=== PATIENT | male | born 1935 | race Caucasian/White ===

== ENCOUNTER 2019-10-24 09:08 | Inpatient (IN) | payer MEDICARE ==
[2019-10-24] VITALS (20 sets, daily range): BP systolic 96–135; BP diastolic 47–81
[~2019-10-24] VITALS: Ht 175.3 cm; Wt 66.7 kg
--- NOTE | 2019-10-24 09:15 | NUR ---
[id number], from [facility], c/p right shoulder pain and left knee skin tear s/p GLF. Patient a/ox3, breathing even and unlabored, no sob noted. Needs attended. Kept comfortable.
--- NOTE | 2019-10-24 09:23 | NUR ---
patient taken to radiology.
[2019-10-24] MEDS ORDERED: TDAP [DIPH/PERTUSSIS/TET] 0.5 ML VIAL IM ONE (09:30)
[2019-10-24 10:12] LABS: BASOPHILS # (AUTO) 0.2 /CMM (0.0-0.2); BASOPHILS % (AUTO) 1.3 % (0.0-2.0); EOSINOPHILS % (AUTO) 0.9 % (0.0-6.0); HEMATOCRIT 42 % (39-51); HEMOGLOBIN 13.7 g/dL (13.5-17.5); LYMPHOCYTES # (AUTO) 0.8 /CMM (0.8-4.8); LYMPHOCYTES % (AUTO) 6.5 % (20.0-44.0); MEAN CORPUSCULAR HGB CONC 33 g/dl (31.0-36.0); MEAN CORPUSCULAR VOLUME 96 fL (80-96); MONOCYTES # (AUTO) 0.7 /CMM (0.1-1.30); MONOCYTES % (AUTO) 5.8 % (2.0-12.0); NEUTROPHILS % (AUTO) 85.5 % (43.0-81.0); PLATELET COUNT (AUTO) 187 /CMM (150-450); RED BLOOD CELL COUNT(AUTO) 4.34 MIL/uL (4.5-6.0); WHITE BLOOD COUNT (AUTO) 12.9 K/uL (4.3-11.0)
[2019-10-24 10:19] LABS: CALCIUM, SERUM 8.3 mg/dL (8.5-10.1); POTASSIUM 3.6 mmol/L (3.5-5.1)
--- NOTE | 2019-10-24 10:27 | NUR ---
PANEL ON-CALL PAGED
--- NOTE | 2019-10-24 10:33 | NUR ---
REQUESTED FOR AN ICU BED, PATIENT ACCEPTED BY DR. CHAMBERS.
[2019-10-24] MEDS ORDERED: FLUT12AE3 INH (10:37)
[2019-10-24] MEDS ORDERED: PROP10TA68 PO (10:37)
[2019-10-24] MEDS ORDERED: PANT40TA4 PO (10:37)
[2019-10-24] MEDS ORDERED: ASPI-1169 PO (10:38)
[2019-10-24] MEDS ORDERED: PRAV20TA4 PO (10:38)
[2019-10-24] MEDS ORDERED: ASCO-352 PO (10:38)
[2019-10-24] MEDS ORDERED: LEVO50TA PO (10:38)
[2019-10-24] MEDS ORDERED: ALLO300T2 PO (10:38)
[2019-10-24] MEDS ORDERED: FURO20TA4 PO (10:38)
[2019-10-24] MEDS ORDERED: TAMS-12 PO (10:38)
[2019-10-24] MEDS ORDERED: SOTA120T PO (10:38)
[2019-10-24] MEDS ORDERED: CLOP75TA15 PO (10:38)
[2019-10-24] MEDS ORDERED: Z GUARD REMEDY 2 OZ OINT TP PRN (11:00)
[2019-10-24] MEDS ORDERED: ACETAMINOPHEN 325 MG TABLET PO PRN (11:00)
[2019-10-24] MEDS ORDERED: MAG HYDROX/AL HYDROX/SIMETH 30 ML UDC PO PRN (11:00)
[2019-10-24] MEDS ORDERED: HYDROCODONE/APAP 5/325MG 1 EACH TABLET PO PRN (11:00)
[2019-10-24] MEDS ORDERED: ONDANSETRON HCL/PF 4 MG/2 ML VIAL IVP PRN (11:00)
[2019-10-24] MEDS ORDERED: MAGNESIUM HYDROXIDE 30 ML UDC PO PRN (11:00)
--- NOTE | 2019-10-24 11:03 | NUR ---
NURSING SUP GAVE ICU BED 257.
--- NOTE | 2019-10-24 11:12 | NUR ---
REPORT GIVEN TO RASTA SCHROEDER. AWAITING TRANSFER TO FLOOR.
--- NOTE | 2019-10-24 11:45 | NUR ---
RN NOTES RECEIVED PT FROM ER IN ROOM 257, PT IS A/Ox4, NO NEUROLOGICAL DEFICIT NOTED, PT STATED HAS MILD HARD OF HEARING WHICH IS NOT NEW FOR HIM ON RA, RESPIRATION EVEN AND UNLABORED,O2 SAT WNL, NO SOB NOTED , ON TELE A PACING , VOIDING PER URINAL, L AC IV G 18 AND L WRIST IV G 22 SITE CLEAN, DRY AND INTACT , MULTIPLY BRUISING AND ABRASION TO RIGHT PINKY FINGER AND LEFT LOWER LEG NOTED , PICTURE TAKEN AND PLACED IN THE CHART, WOUND CONSULT ORDERED, SR UP X3, CALL LIGHT WITHIN EASY REACH, BED LOCKED AND IN LOWEST POSITION, CONTINUE TO MONITOR.
--- NOTE | 2019-10-24 11:51 | NUR ---
PATIENT A/OX3, BREATHING EVEN AND UNLABORED, TRANSFERRED TO ICU VIA ACLS PROTOCOL. NO DISTRESS NOTED. NO CHANGE IN LOC OBSERVED. ENDORSED TO JEWEL SCHROEDER.
[2019-10-24] MEDS: ATORVASTATIN 10 MG TABLET PO SCH (12:21)
[2019-10-24] MEDS ORDERED: IV NS 0.9% 1,000 ML IV ONE (13:00)
--- NOTE | 2019-10-24 15:00 | NUR ---
RN NOTES PT STABLE, NO DISTRESS NOTED, CONTINUE TO MONITOR .
[2019-10-24] MEDS ORDERED: PROPRANOLOL HCL 10 MG TABLET PO SCH (17:00)
[2019-10-24] MEDS: FLUTICASONE/VILANTEROL 1 EACH BLST.W.DEV IH SCH ×2 (17:00→17:08)
[2019-10-24] MEDS: AMOXICILLIN TRIHYDRATE 250 MG CAPSULE PO SCH (17:08)
[2019-10-24] MEDS: SOTALOL HCL 80 MG TABLET PO SCH (17:10)
[2019-10-24] MEDS: ASCORBIC ACID 500 MG TABLET PO SCH (17:10)
[2019-10-24] MEDS: TAMSULOSIN 0.4 MG CAP.SR.24H PO SCH (17:12)
--- NOTE | 2019-10-24 18:47 | NUR ---
RN NOTES PT RESTING , NO NEUROLOGICAL CHANGES NOTED , PT IS A/Ox4, NS AT 75CC/HR RUNNING , WILL ENDOSE TO SENIOR UX DESIGNER NURSE FOR CONTINUITY OF CARE .
--- NOTE | 2019-10-24 19:30 | NUR ---
RN NOTES RECEIVED PATIENT AWAKE ON BED. ON ROOM AIR. AOX4 VERBALLY RESPONSIVE AND AWARE ABOUT WHAT HAPPENED TO HIM. NO SOB. DENIES CHEST PAIN. COMPLAINING OF RIGHT SHOULDER PAIN WHEN MOVE BUT MUCH BETTER FROM EARLIER PER PATIENT. SR WITH A PACING ON TELE MONITOR.IV SITE ON LAC AND LT. ARM WITH NS @75 ML/HR INTACT AND PATENT. KEPT PT CLEAN AND DRY. PATIENT IS USING URINAL. REMINDED TO USE CALL LIGHT FOR ASSISTANCE. KEPT BED IN LOWEST POSSIBLE POSITION. CONTINUE TO MONITOR. NEURO STATUS. WILL CLOSELY MONITOR.
[2019-10-25] VITALS (24 sets, daily range): BP systolic 66–138; BP diastolic 21–75
[2019-10-25 05:19] LABS: BASOPHILS % (AUTO) 0.3 % (0.0-2.0); EOSINOPHILS % (AUTO) 0.3 % (0.0-6.0); HEMATOCRIT 35 % (39-51); HEMOGLOBIN 11.7 g/dL (13.5-17.5); LYMPHOCYTES # (AUTO) 1.4 /CMM (0.8-4.8); LYMPHOCYTES % (AUTO) 19.5 % (20.0-44.0); MEAN CORPUSCULAR HGB CONC 34 g/dl (31.0-36.0); MEAN CORPUSCULAR VOLUME 96 fL (80-96); MONOCYTES # (AUTO) 1.2 /CMM (0.1-1.30); MONOCYTES % (AUTO) 16.9 % (2.0-12.0); NEUTROPHILS # (AUTO) 4.4 /CMM (1.8-8.9); PLATELET COUNT (AUTO) 143 /CMM (150-450); RED BLOOD CELL COUNT(AUTO) 3.63 MIL/uL (4.5-6.0)
[2019-10-25 05:40] LABS: CALCIUM, SERUM 7.9 mg/dL (8.5-10.1); CREATININE 1.2 mg/dL (0.6-1.3); PHOSPHORUS 4.4 mg/dL (2.5-4.9); POTASSIUM 3.7 mmol/L (3.5-5.1)
[2019-10-25 06:07] LABS: LYMPHOCYTES % (MANUAL) 23 % (16-48); MONOCYTES % (MANUAL) 10 % (0-11.0); NEUTROPHILS % (MANUAL) 67 (42-76)
--- NOTE | 2019-10-25 07:02 | NUR ---
RN NOTES PATIENT ASLEEP WELL ON BED. BREATHING EVEN AND UNLABORED IN ROOM AIR. AFEBRILE. NO PAIN UNLESS MOVING THE RIGHT SHOULDER. NO SIGNIFICANT CHANGES THROUGHOUT THE SHIFT. NEURO CHECKED DONE NO MENTAL STATUS CHANGES. REMAINED AOX4.ALL NEEDS ATTENDED. AWARE FOR USING CALL LIGHT CALL LIGHT PROMPTLY ATTENDED.
--- NOTE | 2019-10-25 07:48 | NUR ---
WOUND CARE CONSULT: LIMITED ASSESSMENT DUE TO PT REFUSING TO TURN FOR FULL SKIN ASSESSMENT. PT PRESENTS WITH RT 5TH FINGER WOUND AND LEFT LOWER LEG WOUND, PRESENT ON ADMISSION. RECOMMEND SURGICAL/DPM CONSULTS. DR DRAPER AND DR HUTSON NOTIFIED OF CONSULT REQUESTS. RECOMMENDATIONS MADE FOR SKIN PROTECTION. DISCUSSED WITH NURSING STAFF. WILL SEE PRN. ALVAREZ IN AGREEMENT WITH PLAN OF CARE. Addendum: 10/25/19 at 0750 by JOSEPH WHYTE WNDNU Amended: Links added.
--- NOTE | 2019-10-25 08:00 | NUR ---
RN OPENING NOTE 0720 - Received patient awake in bed. HOB elevated. Appears calm and relaxed. No signs of distress. Patient is AO x4. Patient complained of pain and tenderness on R shoulder. Offered pain meds. pt refused. He said it only hurts when changing position. Will cont to monitor. LAC 18g and L hand 20g IV flushed dressing intact. Safety measures implemented. Call light within reach. Bed locked and on lowest position. All needs met. Will cont to monitor.
[2019-10-25] MEDS: AMOXICILLIN TRIHYDRATE 250 MG CAPSULE PO SCH ×3 (08:18→16:28)
[2019-10-25] MEDS: ALLOPURINOL 100 MG TABLET PO SCH (08:18)
[2019-10-25] MEDS: SOTALOL HCL 80 MG TABLET PO SCH ×2 (08:18→16:28)
[2019-10-25] MEDS: ATORVASTATIN 10 MG TABLET PO SCH (08:19)
[2019-10-25] MEDS: LEVOTHYROXINE SODIUM 50 MCG TABLET PO SCH (08:19)
[2019-10-25] MEDS: PANTOPRAZOLE 40 MG TABLET.DR PO SCH (08:19)
[2019-10-25] MEDS: ASCORBIC ACID 500 MG TABLET PO SCH ×2 (08:19→16:28)
[2019-10-25] MEDS: FLUTICASONE/VILANTEROL 1 EACH BLST.W.DEV IH SCH ×2 (08:33→17:00)
[2019-10-25 08:49] LABS: PHOSPHORUS 4.4 mg/dL (2.5-4.9); THYROID STIMULATING HORMONE 1.371 uIU/mL (0.358-3.74)
[2019-10-25] MEDS ORDERED: FUROSEMIDE 20 MG TABLET PO SCH (09:00)
--- NOTE | 2019-10-25 11:30 | NUR ---
ICU/RN: PT TRANSPORTED TO AND BACK TO ROOM FROM HEAD CT WITH ACLS GUIDELINES. TOLERATED WELL, VSS. WILL CONTINUE TO MONITOR.
--- NOTE | 2019-10-25 16:20 | NUR ---
ICU/RN: PT SEEN AND ASSESSED BY JAYLIN VEGA. PER PA NO SURGICAL INTERVENTION INDICATED AT THIS TIME. WILL RECEIVE ORDERS FOR RIGHT ARM SLING, WILL CALL CENTRAL SUPPLY. PT NEEDS TO FOLLOW UP WITH IN 1-2 WEEKS. PER RECOMMENDATION PT NEEDS REHAB POST DISCHARGE. ALL QUESTIONS OF PT ANSWERED, CONCERNS ADDRESSED.
[2019-10-25] MEDS: TAMSULOSIN 0.4 MG CAP.SR.24H PO SCH (17:49)
--- NOTE | 2019-10-25 19:07 | NUR ---
REALTIME CAPTIONER CLOSING NOTE Patient in bed awake HOB elevated. On RA tolerating well. AO x4. No signs of confusion. Pt in pain on R shoulder. Offered pain medicine. Effective. All due meds given. Provided arm sling as ordered. Vital signs within normal limits. All needs met. Safety measures reinforced. Call light within reach. Bed locked and on lowest position. Will endorse to the shift superintendent caustic cresylate for hao.
--- NOTE | 2019-10-25 19:30 | NUR ---
SCREEN PRINTING LOADER UNLOADER OPENING NOTE, RECEIVED PATIENT IN BED RESTING, A/O X4. ON RA TOLERATING WELL. NO SOB OR ACTED RESPIRATORY DISTRESS NOTED AT THIS TIME. IV ON LAC #18 AND LH #20, SL, PATENT AND FLUSHING WELL. NO S/S OF INFILTRATION NOTED. BED IN LOW/LOCKED POSITION. CALL LIGHT WITHIN REACH, SIDE RAILS UPX3. WILL CONTINUE TO MONITOR THE PATIENT CLOSELY.
--- NOTE | 2019-10-25 20:00 | NUR ---
ARM SLING WAS APPLIED TO THE RIGHT ARM. PATIENT TOLERATED WELL. WILL CONTINUE TO MONITOR.
[2019-10-26] VITALS (14 sets, daily range): BP systolic 93–121; BP diastolic 28–66
--- NOTE | 2019-10-26 00:30 | NUR ---
REPORT GIVEN TO ERIK SCHROEDER FOR BRISEYDA.
--- NOTE | 2019-10-26 00:30 | NUR ---
ELECTRO MECHANICAL TECHNOLOGIST NOTE RECEIVED PATIENT AT THIS TIME. PATIENT IS IN BED RESTING WITH HOB ELEVATED. VERBALLY RESPONSIVE. A&O X4. BREATHING EVEN AND NON LABORED. NO SOB NOTED. IN NO APPARENT DISTRESS NOTED AT THIS TIME. CALL LIGHT IS WITHIN REACH. BED IS LOWERED AND LOCKED FOR SAFETY. WILL CONTINUE TO MONITOR.
[2019-10-26 04:26] LABS: BASOPHILS % (AUTO) 0.3 % (0.0-2.0); EOSINOPHILS % (AUTO) 1.6 % (0.0-6.0); HEMATOCRIT 30 % (39-51); HEMOGLOBIN 10.2 g/dL (13.5-17.5); LYMPHOCYTES # (AUTO) 0.9 /CMM (0.8-4.8); LYMPHOCYTES % (AUTO) 14.6 % (20.0-44.0); MEAN CORPUSCULAR HGB CONC 34 g/dl (31.0-36.0); MEAN CORPUSCULAR VOLUME 95 fL (80-96); MONOCYTES % (AUTO) 15.8 % (2.0-12.0); NEUTROPHILS # (AUTO) 4.3 /CMM (1.8-8.9); NEUTROPHILS % (AUTO) 67.7 % (43.0-81.0); PLATELET COUNT (AUTO) 134 /CMM (150-450); RED BLOOD CELL COUNT(AUTO) 3.15 MIL/uL (4.5-6.0); WHITE BLOOD COUNT (AUTO) 6.3 K/uL (4.3-11.0)
[2019-10-26 04:48] LABS: ALBUMIN 2.3 g/dL (3.4-5.0); CALCIUM, SERUM 7.3 mg/dL (8.5-10.1); MAGNESIUM 1.9 mg/dL (1.8-2.4); PHOSPHORUS 3.4 mg/dL (2.5-4.9); POTASSIUM 3.4 mmol/L (3.5-5.1); TOTAL PROTEIN, SERUM 4.8 g/dL (6.4-8.2)
--- NOTE | 2019-10-26 07:11 | NUR ---
FORENSIC PSYCHOLOGIST NOTES PATIENT REMAINED STABLE THROUGHOUT THE NIGHT. NO SIGNIFICANT CHANGES NOTED. PATIENT KEPT CLEAN, DRY, AND COMFORTABLE. WILL ENDORSE TO AM SHIFT RN FOR CONTINUATION OF CARE.
--- NOTE | 2019-10-26 07:20 | NUR ---
RN INITIAL NOTES RECEIVED PT AWAKE, A/OX4. ON ROOM AIR. NO RESPIRATORY DISTRESS NOTED. NO SOB NOTED. DENIES ANT PAIN. IV LINES IN PLACE. PT COMFORTABLE. CALL LIGHT WITHIN REACH. WILL CLOSELY MONITOR
[2019-10-26] MEDS: ASCORBIC ACID 500 MG TABLET PO SCH ×2 (08:15→16:54)
[2019-10-26] MEDS: ALLOPURINOL 100 MG TABLET PO SCH (08:15)
[2019-10-26] MEDS: LEVOTHYROXINE SODIUM 50 MCG TABLET PO SCH (08:15)
[2019-10-26] MEDS: POTASSIUM CHLORIDE 20 MEQ TAB.PRT.SR PO SCH ×2 (08:15→09:57)
[2019-10-26] MEDS: PANTOPRAZOLE 40 MG TABLET.DR PO SCH (08:15)
[2019-10-26] MEDS: FLUTICASONE/VILANTEROL 1 EACH BLST.W.DEV IH SCH ×2 (08:17→16:56)
[2019-10-26] MEDS: SOTALOL HCL 80 MG TABLET PO SCH ×2 (08:17→16:54)
--- NOTE | 2019-10-26 09:00 | NUR ---
RN NOTES SEEN AND EXAMINED BY DR CHAMBERS. AWARE OF LAB VALUES AND CXR RESULT. CLEARED PT TO DOWNGRADE FOR MED-SURG. WILL MONITOR
--- NOTE | 2019-10-26 11:25 | NUR ---
m/s battery technician: notes received pt from icu via bed, awake, a/ox4 with dx: sdh. sling to right arm in place. oriented to room and surroundings. lunch ordered. pt has food preference and had him speak to jeff (pediatric clinical dietician). vss, afebrile. instructed to call for assistance. will continue to monitor.
--- NOTE | 2019-10-26 11:30 | NUR ---
RN NOTES PT TRANSFERRED TO ROOM 326. PT A/OX4. NO RESPIRATORY DISTRESS NOTED. NO SOB NOTED. DENIES ANY PAIN. PT CLEAN AND DRY. RIANA TOOK OVER PT'S CARE. IN STABLE CONDITION
--- NOTE | 2019-10-26 12:00 | NUR ---
m/s parish nurse: notes pt resting comfortable and ordered lunch. asked and explained purpose to pt regarding taking new photos on his skin discolorations, skin tears to right little finger and left lower leg skin tear, stating, "what for, they already did a thorough assessment and photos were taken 2 days ago, let's leave it as is." will continue to monitor. instructed to call for assistance.
--- NOTE | 2019-10-26 14:00 | NUR ---
m/s steward/stewardess banquet: notes in bed asleep. no distress noted. will continue to monitor.
[2019-10-26 16:49] LABS: URINE SODIUM, RANDOM 22 mmol/l (40-220)
--- NOTE | 2019-10-26 17:45 | NUR ---
m/s continuous process machine operator: notes tx done to left lower leg and right little finger skin tears as ordered. kept comfortable. dinner served with hob elevated. needs attended. no apparent distress noted. instructed to call for assistance.
[2019-10-26 17:46] LABS: OSMOLALITY,URINE 379 mOS/kg (340-1090)
[2019-10-26] MEDS: TAMSULOSIN 0.4 MG CAP.SR.24H PO SCH (18:11)
--- NOTE | 2019-10-26 18:38 | NUR ---
m/s clerk specialist: notes watching tv at this time. needs attended. no apparent distress noted. will continue to monitor.
--- NOTE | 2019-10-26 19:05 | NUR ---
m/s project archivist: notes report given to chandrika (shahab) for continuity of care.
--- NOTE | 2019-10-26 19:30 | NUR ---
MSRN FULLY AWAKE, A/OX4 [place]. RESTING QUIETLY, ALL NEEDS ATTENDED. KEPT COMFORTABLE. SAFETY PRECAUTIONS EMPHASIZED WELL UNDERSTOOD. CLOSELY WATCHED.
--- NOTE | 2019-10-26 23:10 | NUR ---
MSRN ALL NEEDS ATTENDED, ASSISTED REPOSITIONING, RIGHT ARM SLING MAINTAINED, HAND REMAINS SWOLLEN AND BRUISED, REFUSED TO BE ELEVATED ON PILLOWS. NO OTHER NEEDS MADE. CLOSELY WATCH
--- NOTE | 2019-10-27 05:40 | NUR ---
MSRN AM CARE DONE, NO PAIN MED REQUESTED, RIGHT SHOULDER PAIN ABLE TO TOLERATE. REPOSITIONED PER PATIENT COMFORT.
[2019-10-27 07:00] LABS: CALCIUM, SERUM 7.7 mg/dL (8.5-10.1); MAGNESIUM 2.2 mg/dL (1.8-2.4); PHOSPHORUS 3.3 mg/dL (2.5-4.9); POTASSIUM 3.9 mmol/L (3.5-5.1)
--- NOTE | 2019-10-27 07:30 | NUR ---
MS/RN Opening Note Patient received AO x 4, able to responds all stimuli. Pt does no c/o pain or nay discomfort, skin is warm to touch, kept clean/dry, intact IV site. Respiratory even and unlabored with room air. Keep lower position of the bed with locked wheel for safety. Call light within reach, will continue to monitor.
[2019-10-27] MEDS: LEVOTHYROXINE SODIUM 50 MCG TABLET PO SCH (07:52)
[2019-10-27] MEDS: PANTOPRAZOLE 40 MG TABLET.DR PO SCH (07:52)
[2019-10-27 08:00] VITALS: BP 165/90
[2019-10-27] MEDS: ALLOPURINOL 100 MG TABLET PO SCH (08:38)
[2019-10-27] MEDS: FLUTICASONE/VILANTEROL 1 EACH BLST.W.DEV IH SCH ×3 (08:38→17:00)
[2019-10-27] MEDS: SOTALOL HCL 80 MG TABLET PO SCH ×2 (08:42→17:56)
[2019-10-27] MEDS: ASCORBIC ACID 500 MG TABLET PO SCH ×2 (08:42→17:56)
[2019-10-27 09:15] LABS: URIC ACID 2.9 mg/dL (2.6-7.2)
[2019-10-27 09:32] VITALS: BP 112/64
[2019-10-27] MEDS ORDERED: IV NS 0.9% 1,000 ML IV SCH (10:00)
[2019-10-27 10:09] LABS: IRON, SERUM 23 ug/dl (50-175); TOTAL IRON BINDING CAPACITY 186 ug/dl (250-450)
[2019-10-27 10:40] LABS: FERRITIN 183 ng/mL (8-388)
[2019-10-27] MEDS: POTASSIUM CHLORIDE 20 MEQ TAB.PRT.SR PO SCH ×2 (10:45→11:45)
[2019-10-27 16:00] VITALS: BP 118/66
[2019-10-27] MEDS: TAMSULOSIN 0.4 MG CAP.SR.24H PO SCH (17:56)
--- NOTE | 2019-10-27 18:30 | NUR ---
MS/RN Closing Note Patient in bed comfortably, does no c/o pain or discomfort. Skin is warm to touch, clean/dry. Respiratory even and unlabored with room air. Kept remain low position of the bed with locked wheel. Call light within reach, will endorse shift superintendent caustic cresylate.
--- NOTE | 2019-10-27 19:40 | NUR ---
RN OPENING NOTES RECEIVED REPORT FROM [facility] [place]. FOUND Pt AWAKE, RESTING IN BED. Pt IS A/OX3, VERBAL, ABLE TO MAKE NEEDS KNOWN. NO S/S OF ACUTE DISTRESS OR SOB NOTED. NO C/O PAIN AT THIS TIME. RT SLING IN PLACE. IV ACCESS ON YANA #22G, SL & LAC #20G, SL. SAFETY MEASURES IN PLACE. BED LOW, LOCKED, HOB ELEVATED, SIDE RAILS UP, CALL LIGHT AND BEDSIDE TABLE WITHIN REACH. WILL CONTINUE TO MONITOR Pt's CONDITION AND SAFETY THROUGHOUT THE NIGHT.
[2019-10-27 20:00] VITALS: BP 115/60
[2019-10-27 20:30] VITALS: BP 115/60
[2019-10-27] MEDS ORDERED: MUPIROCIN OINT 2% 22 GM TUBE SCH (21:00)
--- NOTE | 2019-10-28 06:26 | NUR ---
RN CLOSING NOTES NO SIGNIFICANT CHANGES IN Pt's CONDITION. Pt REMAINED STABLE PER BASELINE. Pt IS AWAKE, RESTING IN BED, WITH NO S/S OF ACUTE DISTRESS OR SOB NOTED DURING THE NIGHT. ALL NEEDS MET AND ATTENDED TO. SAFETY MEASURES IN PLACE. WILL ENDORSE TO DAYSHIFT RN FOR Pt's BRISEYDA.
--- NOTE | 2019-10-28 06:26 | NUR ---
RN OPENING NOTES RECEIVED REPORT FROM [facility] [place]. FOUND Pt AWAKE, RESTING IN BED. Pt IS A/OX3, VERBAL, ABLE TO MAKE NEEDS KNOWN. NO S/S OF ACUTE DISTRESS OR SOB NOTED. NO C/O PAIN AT THIS TIME. RT SLING IN PLACE. IV ACCESS ON YANA #22G, SL & LAC #20G, SL. SAFETY MEASURES IN PLACE. BED LOW, LOCKED, HOB ELEVATED, SIDE RAILS UP, CALL LIGHT AND BEDSIDE TABLE WITHIN REACH. WILL CONTINUE TO MONITOR Pt's CONDITION AND SAFETY THROUGHOUT THE NIGHT.
[2019-10-28 07:18] LABS: BASOPHILS % (AUTO) 0.3 % (0.0-2.0); EOSINOPHILS % (AUTO) 2.5 % (0.0-6.0); HEMATOCRIT 32 % (39-51); HEMOGLOBIN 10.7 g/dL (13.5-17.5); MEAN CORPUSCULAR HGB CONC 34 g/dl (31.0-36.0); MEAN CORPUSCULAR VOLUME 96 fL (80-96); MONOCYTES # (AUTO) 0.9 /CMM (0.1-1.30); MONOCYTES % (AUTO) 12.4 % (2.0-12.0); NEUTROPHILS # (AUTO) 4.9 /CMM (1.8-8.9); NEUTROPHILS % (AUTO) 70.8 % (43.0-81.0); PLATELET COUNT (AUTO) 177 /CMM (150-450); RED BLOOD CELL COUNT(AUTO) 3.31 MIL/uL (4.5-6.0)
--- NOTE | 2019-10-28 07:30 | NUR ---
MS/RN OPENING NOTE Patient is resting in bed, A/O x4, showing no signs of acute distress or SOB, stable on RA. Patient has no complaints of pain at this time. IV line in the YANA #22g is clean and intact s/l. Arm sling in the R arm in place. Patient is on isolation precautions to R/O COVID- test is pending. Bed is in lowest position. side rails x3 in upright position, call light is within reach and patient is aware of how to call for assistance when needed. Will continue with plan of care.
[2019-10-28 07:40] LABS: ALBUMIN 2.3 g/dL (3.4-5.0); BILIRUBIN,TOTAL 1.4 mg/dL (0.2-1.0); CALCIUM, SERUM 7.4 mg/dL (8.5-10.1); CREATININE 0.8 mg/dL (0.6-1.3); MAGNESIUM 2.2 mg/dL (1.8-2.4); PHOSPHORUS 3.2 mg/dL (2.5-4.9); POTASSIUM 4.1 mmol/L (3.5-5.1)
[2019-10-28] MEDS: LEVOTHYROXINE SODIUM 50 MCG TABLET PO SCH (07:54)
[2019-10-28] MEDS: PANTOPRAZOLE 40 MG TABLET.DR PO SCH (07:54)
[2019-10-28 08:00] VITALS: BP 99/52
[2019-10-28] MEDS: ASCORBIC ACID 500 MG TABLET PO SCH ×2 (08:59→17:13)
[2019-10-28] MEDS: SOTALOL HCL 80 MG TABLET PO SCH ×3 (09:00→17:13)
[2019-10-28] MEDS: ALLOPURINOL 100 MG TABLET PO SCH (09:00)
[2019-10-28] MEDS: FLUTICASONE/VILANTEROL 1 EACH BLST.W.DEV IH SCH ×2 (09:01→17:00)
[2019-10-28] MEDS: SOD FERRIC GLUC 125 MG in IV NS 0.9% 100 ML IV SCH (14:18)
[2019-10-28 16:00] VITALS: BP 106/64
[2019-10-28] MEDS: TAMSULOSIN 0.4 MG CAP.SR.24H PO SCH (17:08)
--- NOTE | 2019-10-28 19:22 | NUR ---
MS/RN CLOSING NOTE Patient is resting in bed, A/O x4, showing no signs of acute distress or SOB, stable on RA. Patient has no complaints of pain at this time. IV line in the YANA #22g is clean and intact s/l. Arm sling in the R arm in place. Patient is on isolation precautions to R/O COVID- test is pending. All patient needs met, all due medications given, patient kept clean and dry throughout shift. Bed is in lowest position. side rails x3 in upright position, call light is within reach and patient is aware of how to call for assistance when needed. Will endorse to shift mechanic.
--- NOTE | 2019-10-28 19:30 | NUR ---
MS RN OPENING NOTES RECEIVED PATIENT FROM MORNING SHIFT, ALERT AND ORIENTED X 3. VERBALLY RESPONSIVE AND ABLE TO FOLLOW DIRECTIONS. BREATHING REGULAR AND UNLABORED ON ROOM AIR. LEFT UPPER ARM G22 AND LEFT AC G20 IV LINES INTACT AND PATENT, FLUSHING WELL WITH NO BLEEDING AND S/S OF INFILTRATION NOTED. DENIES ANY SUICIDAL/HOMICIDAL IDEATION AT THIS TIME. NO COMPLAINTS OF PAIN REPORTED. BED LOW AND LOCKED ON SEMI FOWLERS POSITION. CALL LIGHT IN REACH. WILL CONTINUE TO MONITOR.
[2019-10-28 20:00] VITALS: BP 94/54
[2019-10-29 06:14] LABS: BASOPHILS % (AUTO) 0.4 % (0.0-2.0); EOSINOPHILS % (AUTO) 3.2 % (0.0-6.0); HEMATOCRIT 32 % (39-51); HEMOGLOBIN 10.6 g/dL (13.5-17.5); LYMPHOCYTES # (AUTO) 0.9 /CMM (0.8-4.8); LYMPHOCYTES % (AUTO) 11.7 % (20.0-44.0); MEAN CORPUSCULAR HGB CONC 33 g/dl (31.0-36.0); MEAN CORPUSCULAR VOLUME 95 fL (80-96); MONOCYTES # (AUTO) 0.9 /CMM (0.1-1.30); MONOCYTES % (AUTO) 11.6 % (2.0-12.0); NEUTROPHILS # (AUTO) 5.8 /CMM (1.8-8.9); NEUTROPHILS % (AUTO) 73.1 % (43.0-81.0); PLATELET COUNT (AUTO) 182 /CMM (150-450); RED BLOOD CELL COUNT(AUTO) 3.34 MIL/uL (4.5-6.0); WHITE BLOOD COUNT (AUTO) 7.9 K/uL (4.3-11.0)
--- NOTE | 2019-10-29 06:15 | NUR ---
MS RN CLOSING NOTES PATIENT IN BED ALERT AND ORIENTED X 3. VERBALLY RESPONSIVE AND ABLE TO FOLLOW DIRECTIONS. BREATHING REGULAR AND UNLABORED ON ROOM AIR. LEFT UPPER ARM G22 AND LEFT AC G20 IV LINES PATENT AND FLUSHING WELL. NO COMPLAINTS OF PAIN REPORTED THE WHOLE SHIFT. BED LOW AND LOCKED ON SEMI FOWLERS POSITION. CALL LIGHT IN REACH. WILL ENDORSE TO MORNING SHIFT FOR BRISEYDA.
[2019-10-29 06:26] LABS: CALCIUM, SERUM 7.6 mg/dL (8.5-10.1); CREATININE 0.8 mg/dL (0.6-1.3); POTASSIUM 3.9 mmol/L (3.5-5.1)
--- NOTE | 2019-10-29 07:45 | NUR ---
MS/RN NOTE Received Patient in bed resting comfortably in moderate high back rest, A/O x4, showing no signs of acute distress or SOB, stable on RA. Patient has no complaints of pain at this time. IV line in the YANA #22g is clean and intact s/l. Arm sling in the R arm in place. Patient is on isolation precautions to R/O COVID- test is pending. Bed is in lowest position. side rails x3 in upright position, call light is within reach and patient is aware of how to call for assistance when needed. Will continue to monitor.
[2019-10-29 08:00] VITALS: BP 125/63
[2019-10-29] MEDS: LEVOTHYROXINE SODIUM 50 MCG TABLET PO SCH (08:31)
[2019-10-29 08:32] VITALS: BP 125/63
[2019-10-29] MEDS: PANTOPRAZOLE 40 MG TABLET.DR PO SCH (08:32)
[2019-10-29] MEDS: ALLOPURINOL 100 MG TABLET PO SCH (08:32)
[2019-10-29] MEDS: ASCORBIC ACID 500 MG TABLET PO SCH (08:32)
[2019-10-29] MEDS: SOTALOL HCL 80 MG TABLET PO SCH (08:32)
[2019-10-29] MEDS: FLUTICASONE/VILANTEROL 1 EACH BLST.W.DEV IH SCH (08:38)
[2019-10-29] MEDS: SOD FERRIC GLUC 125 MG in IV NS 0.9% 100 ML IV SCH (13:58)
--- NOTE | 2019-10-29 16:31 | NUR ---
DISCHARGE NOTES PATIENT DISCHARGED IN STABLE CONDITION. A/O X3. ABLE TO MAKE NEEDS KNOWN. V/S TAKEN, STABLE AND RECORDED. PATIENTS IV REMOVED AND APPLIED PRESSURE DRESSINGS. NAME ARM BAND REMOVED. NOTED WITH MULTIPLE BRUISES ON LEGS AND ARMS, WOUND ON LEFT LOWER LEG AND SLING ON RIGHT ARM, PATIENT REFUSED TAKING PICTURES. ALL BELONGINGS CHECKED AND SIGNED. HEALTH TEACHINGS/DISCHARGED INSTRUCTIONS GIVEN AND VERBALIZED UNDERSTANDING. PATIENT LEFT UNIT IN STABLE CONDITION WITH 2 AMBULANCE STAFF VIA GURNEY. NO SIGNS OF ACUTE DISTRESS NOTED. [facility]. CHARGE NURSE AWARE OF DISCHARGED.
== END 2019-10-29 16:30 | DRG 86 ==
LOC: ER 09:10 → ICU 11:04 → MED 10-26 11:40
PROVIDERS: ADMIT Internal Medicine; ATTEND Internal Medicine
DX: S06.5X0A Traumatic subdural hemorrhage without loss of consciousness, initial encounter (principal); S42.291A Other displaced fracture of upper end of right humerus, initial encounter for closed fracture; E87.1 Hypo-osmolality and hyponatremia; W18.30XA Fall on same level, unspecified, initial encounter; Y92.89 Other specified places as the place of occurrence of the external cause; R40.2412 Glasgow coma scale score 13-15, at arrival to emergency department; E78.5 Hyperlipidemia, unspecified; N40.0 Benign prostatic hyperplasia without lower urinary tract symptoms; Z86.73 Personal history of transient ischemic attack (TIA), and cerebral infarction without residual deficits; I10 Essential (primary) hypertension; E03.9 Hypothyroidism, unspecified; I25.10 Atherosclerotic heart disease of native coronary artery without angina pectoris; I48.91 Unspecified atrial fibrillation; Z95.0 Presence of cardiac pacemaker; M10.9 Gout, unspecified; K05.10 Chronic gingivitis, plaque induced; Z95.1 Presence of aortocoronary bypass graft; Z79.82 Long term (current) use of aspirin; Z91.81 History of falling; S81.812A Laceration without foreign body, left lower leg, initial encounter; X58.XXXA Exposure to other specified factors, initial encounter; Y93.9 Activity, unspecified; S61.216A Laceration without foreign body of right little finger without damage to nail, initial encounter; D64.9 Anemia, unspecified
CPT/HCPCS: 36415; 70450-TC; 71045-TC; 73030-TC; 73564-TC; 80048-TC; 80053-TC; 80061-TC; 82728-TC; 83540-TC; 83735-TC; 83935-TC; 84100-TC; 84300-TC; 84439-TC; 84443-TC; 84484-TC; 84550-TC; 85025-TC; 85730-TC; 87081-TC; 93307-TC; 97110-TC; 97112-TC; 97116-TC; 97530-TC; A6403; G0378; J2916; J7030

== ENCOUNTER 2022-05-27 18:09 | Inpatient (IN) | payer MEDICARE, OTHER ==
[~2022-05-27] VITALS: Ht 165.1 cm; Wt 65.3 kg
[~2022-05-27 18:09] MED LIST: ALLO300T2 PO; ASCO-352 PO; ASPI-1169 PO; CLOP75TA15 PO; FLUT12AE3 INH; FURO20TA4 PO; LEVO50TA PO; PANT40TA49 PO; PRAV20TA4 PO; PROP10TA68 PO; SOTA120T PO; TAMS-12 PO
--- NOTE | 2022-05-27 18:10 | NUR ---
Received pt 86 yrs male came by hadley from home c/o chest pain 5 hr ago respiration spont and eay pt reiceved ASA 325 MG PO AND NIG chest pain did not releave
--- NOTE | 2022-05-27 18:15 | NUR ---
SEEN BY DR Melissa HASSAN
--- NOTE | 2022-05-27 18:25 | NUR ---
CXRAY DONE AT BED SIDE
--- NOTE | 2022-05-27 18:30 | NUR ---
Incerted ango catheter G 20 ON LT AC BLOOD DROW AND sent to lab
[2022-05-27 18:44] LABS: BASOPHILS % (AUTO) 0.4 % (0.0-2.0); EOSINOPHILS % (AUTO) 2.3 % (0.0-6.0); HEMATOCRIT 39 % (39-51); HEMOGLOBIN 12.7 g/dL (13.5-17.5); LYMPHOCYTES # (AUTO) 1.1 K/uL (0.8-4.8); MEAN CORPUSCULAR HGB CONC 32 g/dl (31.0-36.0); MEAN CORPUSCULAR VOLUME 99 fL (80-96); MONOCYTES # (AUTO) 0.5 K/uL (0.1-1.30); MONOCYTES % (AUTO) 8.5 % (2.0-12.0); NEUTROPHILS # (AUTO) 4.4 K/uL (1.8-8.9); NEUTROPHILS % (AUTO) 70.8 % (43.0-81.0); PLATELET COUNT (AUTO) 169 K/uL (150-450); WHITE BLOOD COUNT (AUTO) 6.2 K/uL (4.3-11.0)
[2022-05-27] MEDS ORDERED: APIX5TAB PO (18:57)
[2022-05-27] MEDS ORDERED: IPRA42SP (18:57)
[2022-05-27] MEDS ORDERED: CYAN500T9 PO (18:57)
[2022-05-27] MEDS ORDERED: MUPI22OI7 TD (18:57)
[2022-05-27] MEDS ORDERED: TRIA80CR12 TD (18:57)
[2022-05-27] MEDS ORDERED: NITR0.4T48 SL (18:57)
[2022-05-27 19:02] LABS: CALCIUM, SERUM 8.3 mg/dL (8.5-10.1); CARBON DIOXIDE 33 mmol/L (21-32); CHLORIDE 104 mmol/L (98-107); CREATININE 0.9 mg/dL (0.6-1.3); GLUCOSE 112 mg/dL (74-106); POTASSIUM 4.1 mmol/L (3.5-5.1); SODIUM SERUM 140 mmol/L (136-145); UREA NITROGEN, BLOOD 35 mg/dL (7-18)
--- NOTE | 2022-05-27 19:03 | NUR ---
RESTING AND COMFORTABLE no chest pain
--- NOTE | 2022-05-27 19:29 | NUR ---
HAND OFF FRED SCHROEDER
--- NOTE | 2022-05-27 19:34 | NUR ---
covid swab collected
[2022-05-27] MEDS ORDERED: FUROSEMIDE 40 MG/4 ML VIAL IV ONE (21:30)
[2022-05-27] MEDS ORDERED: ACETAMINOPHEN 325 MG TABLET PO PRN (23:00)
[2022-05-27] MEDS ORDERED: MAG HYDROX/AL HYDROX/SIMETH 30 ML UDC PO PRN (23:00)
[2022-05-27] MEDS ORDERED: NITROGLYCERIN 0.4 MG/TAB BOTTLE SL PRN (23:00)
[2022-05-27] MEDS ORDERED: IPRATROPIUM BROMIDE 0.06% 15 ML NASPR NS PRN (23:00)
[2022-05-27] MEDS ORDERED: ONDANSETRON HCL/PF 4 MG/2 ML VIAL IVP PRN (23:00)
[2022-05-27] MEDS ORDERED: ENOXAPARIN SODIUM 40 MG/0.4 ML DISP.SYRIN SQ SCH (23:00)
[2022-05-28 05:40] LABS: BASOPHILS % (AUTO) 0.3 % (0.0-2.0); EOSINOPHILS % (AUTO) 3.1 % (0.0-6.0); HEMATOCRIT 40 % (39-51); LYMPHOCYTES % (AUTO) 17.6 % (20.0-44.0); MEAN CORPUSCULAR HGB CONC 33 g/dl (31.0-36.0); MEAN CORPUSCULAR VOLUME 98 fL (80-96); MONOCYTES # (AUTO) 0.6 K/uL (0.1-1.30); NEUTROPHILS # (AUTO) 3.9 K/uL (1.8-8.9); PLATELET COUNT (AUTO) 164 K/uL (150-450); RED BLOOD CELL COUNT(AUTO) 4.03 MIL/uL (4.5-6.0); WHITE BLOOD COUNT (AUTO) 5.6 K/uL (4.3-11.0)
[2022-05-28 05:52] LABS: CALCIUM, SERUM 8.5 mg/dL (8.5-10.1); CREATININE 0.8 mg/dL (0.6-1.3); MAGNESIUM 2.2 mg/dL (1.8-2.4); PHOSPHORUS 4.4 mg/dL (2.5-4.9); POTASSIUM 3.1 mmol/L (3.5-5.1)
--- NOTE | 2022-05-28 07:10 | NUR ---
Received pt from [facility] AWAKE AND ALERT NO CHEST PAIN
[2022-05-28] MEDS ORDERED: LEVOTHYROXINE SODIUM 50 MCG TABLET ONE (07:40)
[2022-05-28] MEDS: LEVOTHYROXINE SODIUM 50 MCG TABLET PO SCH (07:41)
--- NOTE | 2022-05-28 08:01 | NUR ---
REPORT GIVEN TO JONO SCHROEDER FOR BRISEYDA
--- NOTE | 2022-05-28 08:30 | NUR ---
RN NOTES PATIENT CAME TO UNIT VIA GURNEY FROM ER, WITH NO SIGNA OF DISTRESS NOTED. PATIENT WAS ORIENTED TO ROOM SETUP AND EDUCATED ON THE USE OF CALL LIGHT. V/S TAKEN, STABLE AND RECORDED. BELONGING LIST SIGNED AND CHECKED. SKIN ASSESSMENT DONE AND PICTURES TAKEN. PATIENT AWAKE IN BED RESTING, A/O X 4. NO S/S OF PAIN NOTED AT THIS TIME. ON ROOM AIR, NO DISTRESS OR SHORTNESS OF BREATH NOTED. IV ACCESS LAC #20G, INTACT, PATENT, FLUSHING WELL. PATIENT WITH EXTERNAL KITCHEN STEWARDESS WITH CURRENT READING OF V-PACING AND HR OF 60, NO CARDIAC DISTRESS NOTED AT THIS TIME. FALL AND SAFETY MEASURES IN PLACE, BED ALARM ON, BED IN LOW LOCK POSITION, CALL LIGHT AND TABLE WITHIN EASY REACH, SIDE RAILS UP X2. WILL CONTINUE TO MONITOR.
[2022-05-28] MEDS: APIXABAN 5 MG TABLET PO SCH ×2 (09:39→21:00)
[2022-05-28] MEDS: ATORVASTATIN 10 MG TABLET PO SCH (09:42)
[2022-05-28] MEDS: FUROSEMIDE 20 MG TABLET PO SCH (09:43)
[2022-05-28] MEDS: ASPIRIN 81 MG TAB.CHEW PO SCH (09:44)
[2022-05-28] MEDS: ALLOPURINOL 100 MG TABLET PO SCH (09:44)
[2022-05-28] MEDS: PROPRANOLOL HCL 10 MG TABLET PO SCH ×2 (09:46→17:45)
[2022-05-28] MEDS: ASCORBIC ACID 500 MG TABLET PO SCH ×2 (09:46→17:46)
[2022-05-28] MEDS ORDERED: POTASSIUM CHLORIDE 20 MEQ TAB.PRT.SR PO SCH (10:00)
--- NOTE | 2022-05-28 10:47 | NUR ---
WOUND CARE CONSULT: PT PRESENTS WITH RT LOWER LEG OPEN WOUND WHICH PT STATES IS FROM SKIN CANCER SURGERY. DR HUTSON CALLED FOR DPM CONSULT. PT STATES IS USING MUPIRICIN. PT IS AMBULATORY AND CONTINENT. IN AGREEMENT WITH PLAN OF CARE.
[2022-05-28] MEDS: SOTALOL HCL 80 MG TABLET PO SCH ×2 (11:52→20:58)
[2022-05-28] MEDS: FLUTICASONE/VILANTEROL 1 EACH BLST.W.DEV IH SCH (11:52)
[2022-05-28] MEDS: MUPIROCIN OINT 2% 22 GM TUBE TP SCH (11:52)
[2022-05-28 14:19] VITALS: BP 140/71
[2022-05-28 16:00] VITALS: BP 131/68
[2022-05-28] MEDS ORDERED: TAMSULOSIN 0.4 MG CAP.SR.24H PO SCH (18:00)
--- NOTE | 2022-05-28 19:02 | NUR ---
RN CLOSING NOTE PATIENT AWAKE IN BED RESTING, A/O X 4. NO S/S OF PAIN NOTED AT THIS TIME. ON ROOM AIR, NO DISTRESS OR SHORTNESS OF BREATH NOTED. IV ACCESS LAC #20G, INTACT, PATENT, FLUSHING WELL. PATIENT WITH EXTERNAL PHONE REPRESENTATIVE WITH CURRENT READING OF V-PACING AND HR OF 60, NO CARDIAC DISTRESS NOTED AT THIS TIME. SCHEDULE MEDICATIONS ADMINISTERED. ALL NEEDS ATTENDED AND ANTICIPATED. FALL AND SAFETY MEASURES IN PLACE, BED ALARM ON, BED IN LOW LOCK POSITION, CALL LIGHT AND TABLE WITHIN EASY REACH, SIDE RAILS UP X2. WILL ENDORSE TO INSPECTING ENGINEER.
--- NOTE | 2022-05-28 19:30 | NUR ---
RN OPENING NOTE PATIENT IN BED, AWAKE. PATIENT IS ABLE TO MAKE NEEDS KNOWN, A/O X 3. PATIENT IS ON RA, TOLERATING WELL. BREATHING EVEN AND UNLABORED. TELE MONITOR READS A PACING 81 BPM. PATIENT DOES NOT COMPLAIN OF ANY PAIN AT THIS TIME. LAC 20 G SALINE LOCKED ONLY, FLUSHING WELL. SAFETY MEASURES IN PLACE: BED LOCKED AND IN LOWEST POSITION, CALL LIGHT WITHIN REACH, SIDE RAILS UP. WILL MONITOR PATIENT CLOSELY.
[2022-05-28 20:00] VITALS: BP 135/73
[2022-05-29] VITALS: BP 104/49
[2022-05-29 04:00] VITALS: BP 122/60
[2022-05-29 06:06] LABS: BASOPHILS % (AUTO) 0.5 % (0.0-2.0); EOSINOPHILS % (AUTO) 3.8 % (0.0-6.0); HEMATOCRIT 41 % (39-51); HEMOGLOBIN 13.4 g/dL (13.5-17.5); LYMPHOCYTES # (AUTO) 1.2 K/uL (0.8-4.8); LYMPHOCYTES % (AUTO) 20.5 % (20.0-44.0); MEAN CORPUSCULAR HGB CONC 33 g/dl (31.0-36.0); MEAN CORPUSCULAR VOLUME 99 fL (80-96); MONOCYTES # (AUTO) 0.6 K/uL (0.1-1.30); NEUTROPHILS # (AUTO) 3.7 K/uL (1.8-8.9); NEUTROPHILS % (AUTO) 64.2 % (43.0-81.0); PLATELET COUNT (AUTO) 160 K/uL (150-450); RED BLOOD CELL COUNT(AUTO) 4.11 MIL/uL (4.5-6.0); WHITE BLOOD COUNT (AUTO) 5.7 K/uL (4.3-11.0)
[2022-05-29 06:17] LABS: CALCIUM, SERUM 8.9 mg/dL (8.5-10.1); CARBON DIOXIDE 33 mmol/L (21-32); CHLORIDE 103 mmol/L (98-107); CREATININE 0.8 mg/dL (0.6-1.3); GLUCOSE 108 mg/dL (74-106); MAGNESIUM 2.5 mg/dL (1.8-2.4); PHOSPHORUS 4.5 mg/dL (2.5-4.9); POTASSIUM 3.8 mmol/L (3.5-5.1); SODIUM SERUM 141 mmol/L (136-145); UREA NITROGEN, BLOOD 29 mg/dL (7-18)
--- NOTE | 2022-05-29 07:40 | NUR ---
PATIENT IN BED, AWAKE. TELE MONITOR READS A PACING 70 BPM. PATIENT NOT IN ANY APPARENT DISTRESS. ENDORSED TO DAY SHIFT NURSE FOR BRISEYDA.
[2022-05-29] MEDS: LEVOTHYROXINE SODIUM 50 MCG TABLET PO SCH (08:13)
[2022-05-29] MEDS: ASCORBIC ACID 500 MG TABLET PO SCH (08:50)
[2022-05-29] MEDS: ASPIRIN 81 MG TAB.CHEW PO SCH (08:50)
[2022-05-29] MEDS: ATORVASTATIN 10 MG TABLET PO SCH (08:50)
[2022-05-29] MEDS: FUROSEMIDE 20 MG TABLET PO SCH (08:50)
[2022-05-29] MEDS: ALLOPURINOL 100 MG TABLET PO SCH (08:51)
[2022-05-29] MEDS: PROPRANOLOL HCL 10 MG TABLET PO SCH (08:52)
[2022-05-29] MEDS: APIXABAN 5 MG TABLET PO SCH (08:55)
[2022-05-29 08:57] VITALS: BP 125/73
[2022-05-29] MEDS: SOTALOL HCL 80 MG TABLET PO SCH (08:57)
[2022-05-29] MEDS: MUPIROCIN OINT 2% 22 GM TUBE TP SCH (09:09)
[2022-05-29] MEDS ORDERED: POTASSIUM CHLORIDE 10 MEQ TABLET.SA PO ONE (09:30)
[2022-05-29] MEDS: FLUTICASONE/VILANTEROL 1 EACH BLST.W.DEV IH SCH (09:45)
--- NOTE | 2022-05-29 11:30 | NUR ---
PATIENT DISCHARGED IN STABLE CONDITION. PT A/OX4. ON RA, TOLERATING WELL. NO RESPIRATORY/CARDIAC DISTRESS NOTED. PATIENT DENIES ANY PAIN OR DISCOMFORT AT THIS TIME. PT. REFUSED TO TAKE PICTURES OF HIS OLD WOUNDS/BRUISES. VITALS STABLE. PATIENT STATED HE DID NOT BRING ANY MEDICATIONS FROM HOME TO THE HOSPITAL, PHARMACY CONFIRMED NO MEDICATIONS HAS BEEN BROUGHT. DISCHARGED INSTRUCTION EXPLAINED TO THE PATIENT, PT VERBALIZED COMPLETE UNDERSTANDING. ACCOMPANIED PT VIA WHEELCHAIR STRAIGHT TO THE CAR.
--- NOTE | 2022-05-29 11:40 | NUR ---
SOAKER SODA WORKER NOTES PT IN BED, AWAKE, ALERT AND ORIENTED, NO COMPLAINT OF PAIN OR ANY DISCOMFORT, SEEN BY DR. PITTMAN, DISCHARGE ORDER GIVEN, DISCHARGE AND MEDICATION INSTRUCTIONS PROVIDED TO PT, VERBALIZED UNDERSTANDING, BELONGINGS ACCOUNTED FOR, PT REFUSED SKIN ASSESSMENT AND WOUND PHOTOS ON DISCHARGE, EXPLAINED TO PT THAT IT IS HOSPITAL PROTOCOL, PT STILL REFUSED, ASSISTED PT TO WHEELCHAIR, ASSISTED PT TO HOSPITAL LOBBY, PT PICKED UP BY FRAN HERNANDEZ GOING TO [facility], LEFT VIA PRIVATE CAR IN STABLE CONDITION.
[2022-06-02] MEDS ORDERED: CYANOCOBALAMIN 500 MCG TABLET PO SCH (09:00)
== END 2022-05-29 11:53 | DRG 291 ==
LOC: ER 19:07 → TRANSITION 05-28 00:18 → TELE 05-28 07:48
PROVIDERS: ADMIT Nurse Practitioner Acute Care; ATTEND Registered Nurse
DX: I11.0 Hypertensive heart disease with heart failure (principal); I50.33 Acute on chronic diastolic (congestive) heart failure; N17.9 Acute kidney failure, unspecified; I25.10 Atherosclerotic heart disease of native coronary artery without angina pectoris; I25.5 Ischemic cardiomyopathy; I48.0 Paroxysmal atrial fibrillation; Z20.822 Contact with and (suspected) exposure to COVID-19; Z86.73 Personal history of transient ischemic attack (TIA), and cerebral infarction without residual deficits; E03.9 Hypothyroidism, unspecified; E78.5 Hyperlipidemia, unspecified; I25.2 Old myocardial infarction; Z95.1 Presence of aortocoronary bypass graft; Z91.011 Allergy to milk products; Z91.018 Allergy to other foods; Z79.51 Long term (current) use of inhaled steroids; Z79.01 Long term (current) use of anticoagulants; Z79.82 Long term (current) use of aspirin; Z79.899 Other long term (current) drug therapy; Z79.890 Hormone replacement therapy; D64.9 Anemia, unspecified; Z95.0 Presence of cardiac pacemaker; I67.1 Cerebral aneurysm, nonruptured; Z87.81 Personal history of (healed) traumatic fracture; M10.9 Gout, unspecified; N40.0 Benign prostatic hyperplasia without lower urinary tract symptoms; E87.6 Hypokalemia; Z85.828 Personal history of other malignant neoplasm of skin; M62.50 Muscle wasting and atrophy, not elsewhere classified, unspecified site; S81.801A Unspecified open wound, right lower leg, initial encounter; X58.XXXA Exposure to other specified factors, initial encounter; Y92.9 Unspecified place or not applicable
CPT/HCPCS: 36415; 71045-TC; 80048-TC; 80061-TC; 83735-TC; 83880; 84100-TC; 84484-TC; 85025-TC; 87081-TC; 93307-TC; A6403; C9803; G0378; J1940; J2405

== ENCOUNTER 2023-12-07 15:35 | Inpatient (IN) | payer MEDICARE, OTHER ==
[~2023-12-07] VITALS: Ht 175.3 cm; Wt 61.7 kg
[~2023-12-07 15:35] MED LIST changes: +APIX5TAB PO; -CLOP75TA15 PO; +CYAN500T9 PO; +IPRA42SP; +MUPI22OI7 TD; +NITR0.4T48 SL; -PANT40TA49 PO; +TRIA80CR12 TD
[2023-12-07 16:21] LABS: BASOPHILS % (AUTO) 0.5 % (0.0-2.0); EOSINOPHILS # (AUTO) 0.1 K/uL (0.0-0.7); EOSINOPHILS % (AUTO) 1.5 % (0.0-6.0); HEMATOCRIT 41 % (39-51); HEMOGLOBIN 13.3 g/dL (13.5-17.5); LYMPHOCYTES # (AUTO) 1.2 K/uL (0.8-4.8); LYMPHOCYTES % (AUTO) 22.7 % (20.0-44.0); MEAN CORPUSCULAR HEMOGLOBIN 31 PG (26.0-33.0); MEAN CORPUSCULAR HGB CONC 33 g/dl (31.0-36.0); MEAN CORPUSCULAR VOLUME 96 fL (80-96); MONOCYTES # (AUTO) 0.6 K/uL (0.1-1.30); NEUTROPHILS # (AUTO) 3.4 K/uL (1.8-8.9); NEUTROPHILS % (AUTO) 64.3 % (43.0-81.0); PLATELET COUNT (AUTO) 178 K/uL (150-450); RED BLOOD CELL COUNT(AUTO) 4.25 MIL/uL (4.5-6.0); WHITE BLOOD COUNT (AUTO) 5.3 K/uL (4.3-11.0)
[2023-12-07] MEDS ORDERED: METOPROLOL TARTRATE INJ 5 MG/5 ML AMPUL ONE (16:26)
[2023-12-07 16:31] LABS: CARBON DIOXIDE 29 mmol/L (21-32); CHLORIDE 101 mmol/L (98-107); CREATININE 0.8 mg/dL (0.6-1.3); GLUCOSE 103 mg/dL (74-106); POTASSIUM 4.9 mmol/L (3.5-5.1); SODIUM SERUM 138 mmol/L (136-145); UREA NITROGEN, BLOOD 25 mg/dL (7-18)
[2023-12-07] MEDS: METOPROLOL TARTRATE INJ 5 MG/5 ML AMPUL IVP ONE (16:33)
[2023-12-07 16:35] LABS: INR 1.25 (0.91-1.10); PARTIAL THROMBOPLASTIN TIME 26.8 SEC (24.3-34.3); PROTHROMBIN TIME 13.1 SECS (9.2-11.1)
[2023-12-07 16:41] LABS: ALANINE AMINOTRANSFERASE 50 U/L (12-78); ALBUMIN 2.8 g/dL (3.4-5.0); ALKALINE PHOSPHATASE 177 U/L (46-116); ASPARTATE AMINOTRANSFERASE 59 U/L (15-37); BILIRUBIN,DIRECT 0.2 mg/dL (0.0-0.2); BILIRUBIN,TOTAL 0.6 mg/dL (0.2-1.0); TOTAL PROTEIN, SERUM 6.3 g/dL (6.4-8.2)
[2023-12-07] MEDS ORDERED: APIX2.5T PO (16:53)
[2023-12-07] MEDS ORDERED: EMPA10TA PO (16:53)
[2023-12-07] MEDS ORDERED: PROP20TA7 PO (16:53)
[2023-12-07] MEDS ORDERED: SOTA80TA PO (16:53)
[2023-12-07] MEDS ORDERED: POTA10TA11 PO (16:53)
[2023-12-07] MEDS ORDERED: PENT400T17 PO (16:53)
[2023-12-07] MEDS ORDERED: FINA5TAB11 PO (16:53)
[2023-12-07] MEDS ORDERED: FLUT16SP BNOSTRILS (16:53)
[2023-12-07] MEDS ORDERED: MORPHINE SULFATE INJ 2 MG/ML DISP.SYRIN IV PRN (17:00)
[2023-12-07] MEDS ORDERED: hydrALAZINE HCL IV 20 MG VIAL IV PRN (17:00)
[2023-12-07] MEDS ORDERED: ONDANSETRON HCL/PF 4 MG/2 ML VIAL IVP PRN (17:00)
[2023-12-07] MEDS: APIXABAN 5 MG TABLET PO SCH (18:22)
[2023-12-07] MEDS: TAMSULOSIN 0.4 MG CAP.SR.24H PO SCH (18:22)
[2023-12-07] MEDS: ALBUTEROL FS 2.5 MG/3 ML VIAL.NEB NEB SCH (19:30)
[2023-12-08] VITALS (9 sets, daily range): BP systolic 94–141; BP diastolic 58–72; TEMP 97.5–98.7; O2SAT 94–99
[2023-12-08 06:20] LABS: BASOPHILS % (AUTO) 0.5 % (0.0-2.0); EOSINOPHILS # (AUTO) 0.1 K/uL (0.0-0.7); HEMATOCRIT 37 % (39-51); LYMPHOCYTES # (AUTO) 1.1 K/uL (0.8-4.8); LYMPHOCYTES % (AUTO) 27.5 % (20.0-44.0); MEAN CORPUSCULAR HEMOGLOBIN 32 PG (26.0-33.0); MEAN CORPUSCULAR HGB CONC 33 g/dl (31.0-36.0); MEAN CORPUSCULAR VOLUME 97 fL (80-96); MONOCYTES # (AUTO) 0.5 K/uL (0.1-1.30); MONOCYTES % (AUTO) 12.4 % (2.0-12.0); NEUTROPHILS # (AUTO) 2.3 K/uL (1.8-8.9); NEUTROPHILS % (AUTO) 57.6 % (43.0-81.0); PLATELET COUNT (AUTO) 152 K/uL (150-450); RED BLOOD CELL COUNT(AUTO) 3.81 MIL/uL (4.5-6.0); RED CELL DISTRIBUTION WIDTH 17.6 % (11.5-15.0)
[2023-12-08 06:49] LABS: ALBUMIN 2.4 g/dL (3.4-5.0); BILIRUBIN,TOTAL 0.6 mg/dL (0.2-1.0); CREATININE 0.9 mg/dL (0.6-1.3); MAGNESIUM 2.5 mg/dL (1.8-2.4); PHOSPHORUS 4.5 mg/dL (2.5-4.9); POTASSIUM 3.9 mmol/L (3.5-5.1); TOTAL PROTEIN, SERUM 5.2 g/dL (6.4-8.2)
[2023-12-08] MEDS: LEVOTHYROXINE SODIUM 50 MCG TABLET PO SCH (06:51)
[2023-12-08] MEDS: BUDESONIDE RESPULE INH 0.5 MG/2 ML AMPUL.NEB NEB SCH (08:12)
[2023-12-08] MEDS ORDERED: PROPRANOLOL HCL 10 MG TABLET PO SCH (09:00)
[2023-12-08] MEDS ORDERED: SOTALOL HCL 80 MG TABLET PO SCH (09:00)
[2023-12-08] MEDS ORDERED: Medication Not On Formulary EA (Empagliflozin (Jardiance) 10 MG) PO SCH (09:00)
[2023-12-08] MEDS: ASPIRIN 81 MG TAB.CHEW PO SCH (09:27)
[2023-12-08] MEDS: FUROSEMIDE 20 MG TABLET PO SCH (09:27)
[2023-12-08] MEDS: ATORVASTATIN 10 MG TABLET PO SCH (09:27)
[2023-12-08] MEDS: FINASTERIDE (5 MG) 5 MG TABLET PO SCH (09:27)
[2023-12-08] MEDS: POTASSIUM CHLORIDE 10 MEQ TABLET.SA PO SCH (09:29)
[2023-12-08] MEDS: PENTOXIFYLLINE 400 MG TABLET.SA PO SCH (09:29)
[2023-12-08] MEDS: MUPIROCIN OINT 2% 22 GM TUBE TP SCH (09:29)
[2023-12-08] MEDS ORDERED: SOTA80TA6 PO (10:20)
[2023-12-08] MEDS: methylPREDNISolone SOD SUCC 125 MG/2ML VIAL IV ONE (15:39)
[2023-12-08] MEDS: SOTALOL HCL 80 MG TABLET PO SCH (17:35)
[2023-12-08] MEDS: IPRATROPIUM NEB FS 0.5 MG/2.5 ML AMPUL.NEB NEB SCH (19:30)
[2023-12-09] VITALS (8 sets, daily range): BP systolic 70–117; BP diastolic 60–100; TEMP 97.9–98.2; O2SAT 94–99
[2023-12-09] MEDS: IV NS 0.9% 500 ML IV ONE (11:34)
[2023-12-09] MEDS: IV NS 0.9% 500 ML IV STA (12:51)
[2023-12-09] MEDS: DOCUSATE SODIUM 100 MG CAPSULE PO SCH (13:14)
[2023-12-09] MEDS ORDERED: IOHEXOL 50 ML IV ONE (14:31)
[2023-12-09] MEDS ORDERED: IOHEXOL-350 100 ML VIAL IV ONE (14:31)
[2023-12-09] MEDS ORDERED: IV NS 0.9% 250 ML IV ONE (14:32)
[2023-12-09] MEDS ORDERED: CT SWABBABLE VALVE TRANS SET 1 EA INFUS.SET MC ONE (14:32)
[2023-12-09] MEDS ORDERED: NITROGLYCERIN 0.4 MG/TAB BOTTLE ONE ×2 (14:32→14:37)
[2023-12-09] MEDS ORDERED: METOPROLOL TARTRATE INJ 5 MG/5 ML AMPUL ONE (14:37)
[2023-12-09] MEDS: METOPROLOL TARTRATE INJ 5 MG/5 ML AMPUL IVP PRN (14:40)
[2023-12-09] MEDS: NITROGLYCERIN 0.4 MG/TAB BOTTLE SL ONE (14:47)
[2023-12-09] MEDS: BUDESONIDE RESPULE INH 0.5 MG/2 ML AMPUL.NEB NEB SCH (20:16)
[2023-12-10] VITALS (10 sets, daily range): BP systolic 96–115; BP diastolic 60–79; TEMP 97.3–98; O2SAT 0–99
[2023-12-10 06:43] LABS: BASOPHILS % (AUTO) 0.3 % (0.0-2.0); EOSINOPHILS % (AUTO) 0.4 % (0.0-6.0); HEMATOCRIT 38 % (39-51); HEMOGLOBIN 12.5 g/dL (13.5-17.5); LYMPHOCYTES # (AUTO) 1.2 K/uL (0.8-4.8); LYMPHOCYTES % (AUTO) 19.4 % (20.0-44.0); MEAN CORPUSCULAR HEMOGLOBIN 31 PG (26.0-33.0); MEAN CORPUSCULAR HGB CONC 33 g/dl (31.0-36.0); MEAN CORPUSCULAR VOLUME 95 fL (80-96); MONOCYTES # (AUTO) 0.7 K/uL (0.1-1.30); MONOCYTES % (AUTO) 10.5 % (2.0-12.0); NEUTROPHILS # (AUTO) 4.4 K/uL (1.8-8.9); NEUTROPHILS % (AUTO) 69.4 % (43.0-81.0); PLATELET COUNT (AUTO) 196 K/uL (150-450); RED BLOOD CELL COUNT(AUTO) 4.05 MIL/uL (4.5-6.0); RED CELL DISTRIBUTION WIDTH 17.3 % (11.5-15.0); WHITE BLOOD COUNT (AUTO) 6.4 K/uL (4.3-11.0)
[2023-12-10 07:17] LABS: CHLORIDE 103 mmol/L (98-107); CREATININE 0.8 mg/dL (0.6-1.3); GLUCOSE 93 mg/dL (74-106); MAGNESIUM 2.4 mg/dL (1.8-2.4); PHOSPHORUS 4.2 mg/dL (2.5-4.9); POTASSIUM 3.5 mmol/L (3.5-5.1); SODIUM SERUM 139 mmol/L (136-145); UREA NITROGEN, BLOOD 26 mg/dL (7-18)
[2023-12-10 07:39] LABS: CARBON DIOXIDE 29 mmol/L (21-32)
[2023-12-10] MEDS: ISOSORBIDE MONONITRATE 20 MG TABLET PO SCH (20:53)
[2023-12-11] VITALS (11 sets, daily range): BP systolic 93–130; BP diastolic 56–83; TEMP 97.4–98.4; O2SAT 0–98
[2023-12-11] MEDS: NITROGLYCERIN 0.4 MG/TAB BOTTLE SL PRN (04:37)
[2023-12-12] VITALS (7 sets, daily range): BP systolic 111–138; BP diastolic 64–81; TEMP 97.9–98.2; O2SAT 94–99
[2023-12-12] MEDS: ACETAMINOPHEN 325 MG TABLET PO PRN (03:58)
== END 2023-12-12 13:07 | DRG 309 ==
LOC: ER 15:52 → TELE-TD 16:50 → TELE1 12-09 09:19
PROVIDERS: ADMIT Internal Medicine; ATTEND Nurse Practitioner Acute Care
DX: I48.91 Unspecified atrial fibrillation (principal); I25.110 Atherosclerotic heart disease of native coronary artery with unstable angina pectoris; I82.811 Embolism and thrombosis of superficial veins of right lower extremity; I82.431 Acute embolism and thrombosis of right popliteal vein; T82.858A Stenosis of other vascular prosthetic devices, implants and grafts, initial encounter; I47.10 Supraventricular tachycardia, unspecified; I11.0 Hypertensive heart disease with heart failure; I50.9 Heart failure, unspecified; J44.9 Chronic obstructive pulmonary disease, unspecified; E78.5 Hyperlipidemia, unspecified; E61.1 Iron deficiency; E03.9 Hypothyroidism, unspecified; I27.20 Pulmonary hypertension, unspecified; I73.9 Peripheral vascular disease, unspecified; Z79.82 Long term (current) use of aspirin; Z79.84 Long term (current) use of oral hypoglycemic drugs; Z86.73 Personal history of transient ischemic attack (TIA), and cerebral infarction without residual deficits; Z95.1 Presence of aortocoronary bypass graft; Z95.810 Presence of automatic (implantable) cardiac defibrillator; Z79.01 Long term (current) use of anticoagulants; Y84.8 Other medical procedures as the cause of abnormal reaction of the patient, or of later complication, without mention of misadventure at the time of the procedure; Y92.89 Other specified places as the place of occurrence of the external cause
CPT/HCPCS: 36415; 71045-TC; 75574; 80048-TC; 80053-TC; 80076-TC; 83735-TC; 84100-TC; 84484-TC; 85025-TC; 85730-TC; 87081-TC; 93307-TC; 93970-TC; 94760-TC; 94762-TC; 94799-TC; A4223; G0378; J2919; J3490; J7040; J7050; Q9967

== ENCOUNTER 2025-05-16 08:16 | Emergency (ER) | payer MEDICARE, OTHER ==
[~2025-05-16] VITALS: Ht 175.3 cm; Wt 64.0 kg
[~2025-05-16 08:16] MED LIST changes: +APIX2.5T PO; -APIX5TAB PO; +EMPA10TA PO; +FINA5TAB11 PO; +FLUT16SP BNOSTRILS; -IPRA42SP; +IPRA42SP BNOSTRILS; +PENT400T17 PO; +POTA10TA11 PO; -PROP10TA68 PO; -SOTA120T PO; +SOTA80TA6 PO
[2025-05-16 08:19] VITALS: TEMP 97.8
[2025-05-16] MEDS ORDERED: GUAIFENESIN/D-METHORPHAN HB 5 ML UDC ONE (08:39)
[2025-05-16] MEDS: GUAIFENESIN/D-METHORPHAN HB 5 ML UDC PO ONE (08:42)
[2025-05-16 08:44] LABS: PLATELET COUNT (AUTO) 249 K/uL (150-450); RED BLOOD CELL COUNT(AUTO) 4.24 MIL/uL (4.5-6.0); RED CELL DISTRIBUTION WIDTH 16.3 % (11.5-15.0); WHITE BLOOD COUNT (AUTO) 10.1 K/uL (4.3-11.0)
[2025-05-16 08:56] LABS: CALCIUM, SERUM 7.8 mg/dL (8.5-10.1); CREATININE 0.9 mg/dL (0.6-1.3); SODIUM SERUM 144 mmol/L (136-145); UREA NITROGEN, BLOOD 27 mg/dL (7-18)
[2025-05-16 09:10] LABS: ASPARTATE AMINOTRANSFERASE 17 U/L (15-37); NT-PRO BNP 4442 pg/mL (0-125); TOTAL PROTEIN, SERUM 6.1 g/dL (6.4-8.2)
[2025-05-16] MEDS ORDERED: CHOL100043 PO (09:18)
[2025-05-16] MEDS ORDERED: SOTA80TA26 PO (09:18)
[2025-05-16] MEDS ORDERED: ASPI-1420 PO (09:18)
[2025-05-16] MEDS ORDERED: CHOL200059 PO (09:18)
[2025-05-16] MEDS ORDERED: CYAN-51 PO (09:18)
[2025-05-16] MEDS ORDERED: FURO40TA5 PO (09:18)
[2025-05-16] MEDS ORDERED: PROP20TA19 PO (09:18)
[2025-05-16] MEDS ORDERED: LEVO25TA9 PO (09:18)
[2025-05-16] MEDS ORDERED: POTASSIUM CHLORIDE 20 MEQ TAB.PRT.SR PO ONE (09:35)
[2025-05-16] MEDS: POTASSIUM CHLORIDE 20 MEQ TAB.PRT.SR PO ONE (09:40)
[2025-05-16 12:24] VITALS: BP 112/66; O2SAT 96
== END 2025-05-16 12:27 | disposition home or self-care (01) ==
LOC: ER 08:18
DX: R06.02 Shortness of breath (principal); R05.9 Cough, unspecified; R09.81 Nasal congestion; E03.9 Hypothyroidism, unspecified; E11.9 Type 2 diabetes mellitus without complications; E78.5 Hyperlipidemia, unspecified; E87.6 Hypokalemia; I11.0 Hypertensive heart disease with heart failure; I25.10 Atherosclerotic heart disease of native coronary artery without angina pectoris; I25.2 Old myocardial infarction; I48.91 Unspecified atrial fibrillation; I50.9 Heart failure, unspecified; J44.9 Chronic obstructive pulmonary disease, unspecified; M10.9 Gout, unspecified; N40.0 Benign prostatic hyperplasia without lower urinary tract symptoms; Z79.82 Long term (current) use of aspirin; Z79.899 Other long term (current) drug therapy; Z86.73 Personal history of transient ischemic attack (TIA), and cerebral infarction without residual deficits; Z88.8 Allergy status to other drugs, medicaments and biological substances; Z95.0 Presence of cardiac pacemaker; Z95.1 Presence of aortocoronary bypass graft; Z20.822 Contact with and (suspected) exposure to COVID-19
CPT/HCPCS: 36415; 71045-TC; 80048-TC; 80076-TC; 83880; 84484-TC; 85025-TC